=== PATIENT | male | born 1970 | race Caucasian/White ===

== ENCOUNTER 2016-10-02 16:26 | Emergency (ER) | payer SELFPAY ==
[2016-10-02 16:32] VITALS: BP 138/86
--- NOTE | 2016-10-02 16:37 | ER Document Report ---
ED Medical Screen (RME) - General Stated Complaint: POSSIBLE STD EXPOSURE Notes: Patient states he is having penile discharge for the last 2-1/2 days. Complains of burning when he voids. States he has not been notified by partner of any STD. I have greeted and performed a rapid initial assessment of this patient. A comprehensive ED assessment and evaluation of the patient, analysis of test results and completion of the medical decision making process will be conducted by additional ED providers. - Related Data Allergies/Adverse Reactions: No Known Allergies Allergy (Verified 10/02/16 16:35) Physical Exam - Vital signs Vitals: Temp Pulse Resp BP Pulse Ox 99.3 F 90 16 138/86 H 99 10/02/16 16:31 10/02/16 16:31 10/02/16 16:31 10/02/16 16:31 10/02/16 16:31 Course - Vital Signs Vital signs: Temp Pulse Resp BP Pulse Ox 99.3 F 90 16 138/86 H 99 10/02/16 16:31 10/02/16 16:31 10/02/16 16:31 10/02/16 16:31 10/02/16 16:31
[2016-10-02] MEDS ORDERED: LIDOCAINE 1% INJ-PF (10 MG/ML) 30 ML SDV INJ ONE (17:15)
[2016-10-02] MEDS ORDERED: CEFTRIAXONE INJ 500 MG VIAL IM ONE (17:15)
[2016-10-02] MEDS ORDERED: AZITHROMYCIN 1 GM SUSP PACKET PO ONE (17:16)
[2016-10-02 17:23] LABS: APPEARANCE,URINE SLIGHTLY-CLOUDY; BILIRUBIN,URINE NEGATIVE (NEGATIVE); GLUCOSE, URINE NEGATIVE (NEGATIVE); KETONES,URINE NEGATIVE (NEGATIVE); LEUKOCYTE ESTERASE,URINE MODERATE (NEGATIVE); NITRITE,URINE NEGATIVE (NEGATIVE); PROTEIN,URINE NEGATIVE (NEGATIVE); UROBILINOGEN,URINE NEGATIVE mg/dL (<2.0)
--- NOTE | 2016-10-02 18:06 | ER Document Report ---
ED General - General Chief Complaint: STD Exposure Stated Complaint: POSSIBLE STD EXPOSURE Notes: Patient is complaining of burning with urination since Wednesday. He is also had some penile discharge and drip. Had sexual relations Wednesday, and developed these symptoms the next afternoon. Think she may have had some fever last night, but did not take his temp.. No vomiting and diarrhea. No abdominal pains. TRAVEL OUTSIDE OF THE [place] IN LAST 30 DAYS: No - Related Data Allergies/Adverse Reactions: No Known Allergies Allergy (Verified 10/02/16 16:35) Past Medical History - Social History Smoking Status: Current Every Day Smoker Chew tobacco use (# tins/day): No Frequency of alcohol use: Social Drug Abuse: None Family History: Reviewed & Not Pertinent Patient has suicidal ideation: No Patient has homicidal ideation: No Surgical Hx: Negative Review of Systems - Review of Systems EENT: denies: Eye discharge Cardiovascular: denies: Chest pain Respiratory: denies: Cough, Short of breath, Wheezing Gastrointestinal: denies: Abdominal pain, Diarrhea, Vomiting, Constipation Physical Exam - Vital signs Vitals: Temp Pulse Resp BP Pulse Ox 99.3 F 90 16 138/86 H 99 10/02/16 16:31 10/02/16 16:31 10/02/16 16:31 10/02/16 16:31 10/02/16 16:31 Interpretation: Normal - Notes Notes: PHYSICAL EXAMINATION: GENERAL: Well-appearing, in no acute distress.Ambulatory. No apparent pain. HEAD: Atraumatic, normocephalic. ABDOMEN: Soft, nontender. No guarding or rebound. BACK: No tenderness throughout entire back. Genitourinary: Patient has a small amount of clear looking discharge from the tip of the urethra. Does not look purulent. No swelling of either testicle. External genitalia essentially normal appearing. SKIN: Warm, dry, no rashes. Course - Re-evaluation Re-evalutation: 10/02/16 19:23 In spite of patient's tests all come back normal. He has symptoms of at least a nonspecific urethritis. I'm going to treat him with a spectrum of antibiotics that will treat all the possible STDs of significance. He understands this approach and is agreeable to doing so. - Vital Signs Vital signs: Temp Pulse Resp BP Pulse Ox 99.3 F 90 16 138/86 H 99 10/02/16 16:31 10/02/16 16:31 10/02/16 16:31 10/02/16 16:31 10/02/16 16:31 - Laboratory Laboratory results interpreted by me: 10/02/16 10/02/16 16:55 16:55 Ur Leukocyte Esterase MODERATE H Urine Ascorbic Acid 40 H N.gonorrhoeae DNA (PCR) DETECTED H Discharge - Discharge Clinical Impression: NSU (nonspecific urethritis) Condition: Stable Disposition: HOME, SELF-CARE Additional Instructions: Urethritis You have urethritis, an infection of the urethra. The usual symptoms are pain on urination and discharge. The infection is often caused by gonorrhea or chlamydia. Treatment is antibiotics. In addition, any sexual contacts should be evaluated by a physician as soon as possible. As this infection can be transmitted sexually, refrain from sexual activity until the infection is confirmed as healed by your physician. If gonorrhea or chlamydia is found on culture, the health department must be notified. Call the doctor at once if you develop difficulty passing your urine, high fever, rash, joint swelling, or other new symptoms.current. TRICHOMONAS INFECTION: Trichomoniasis is infection of the vagina or male genital tract with Trichomonas vaginalis. It can be asymptomatic or cause urethritis, vaginitis, or occasionally cystitis, epididymitis, or prostatitis. Diagnosis is by microscopic examination of vaginal or prostatic secretions or by urethral culture. Patients and sex partners are treated with metronidazole. T. vaginalis is a flagellated, sexually transmitted protozoan that more often infects women (about 20% of women of reproductive age) than men. Infection may be asymptomatic in either sex, but asymptomatic is the rule for men. In men, protozoa may persist for long periods in the tract without causing symptoms; thus, protozoa may be transmitted unwittingly to sex partners. Trichomoniasis may account for up to 5% of nongonococcal, nonchlamydial urethritis in men in some areas. Co-infection with gonorrhea and other sexually transmitted diseases (STDs) is common. In women, symptoms range from none to copious, yellow-green, frothy vaginal discharge with soreness of the vulva and perineum, dyspareunia, and dysuria. Asymptomatic infection may become symptomatic at any time as the vulva and perineum become inflamed and edema develops in the labia. The vaginal torres and surface of the cervix may have punctate, red "strawberry" spots. Urethritis and possibly cystitis may also occur. Men are usually asymptomatic; however, sometimes urethritis results in a discharge that may be transient, frothy, or purulent or that causes dysuria and frequency, usually early in the morning. Often, urethritis is mild and causes only minimal urethral irritation and occasional moisture at the urethral meatus , under the foreskin, or both. Epididymitis and prostatitis are rare complications. Trichomoniasis is suspected in women with vaginitis, in men with urethritis , and in their sex partners. Suspicion is high if symptoms persist after patients have been evaluated and treated for other infections such as gonorrhea and chlamydial, mycoplasmal, and ureaplasmal infections. In women, diagnosis is based on clinical criteria and in-office testing. The saline wet mount is examined microscopically as soon as possible to detect trichomonads.In men, microscopy of urine is insensitive, although occasionally organisms are visible in a first-voided morning specimen or a centrifuged specimen. Cultures of urine and urethral swabs are more sensitive. As with diagnosis of any STD, patients with trichomoniasis should be tested to exclude other common STDs such as gonorrhea and chlamydial infection. Metronidazole or tinidazole 2 g po in a single dose cures up to 95% of women if sex partners are treated simultaneously. Effectiveness of single-dose regimens in men is not as clear, so treatment is typically with metronidazole or tinidazole 500 mg bid for 5 to 7 days. Sex partners should be screened and treated for trichomoniasis and other STDs. If poor adherence to follow-up is likely, treatment can be initiated in sex partners of patients with documented trichomoniasis without confirming the diagnosis in the partner. Chlamydia Chlamydia is a germ that grows inside the cells of the mucous membranes. It often infects the eyes, urethra, and fallopian tubes. It can cause chronic pain and scar tissue if untreated. Antibiotics are used to treat chlamydia. It's important to take all the medicine even if there are no symptoms. Use condoms to prevent spread of the infection. Because this infection can spread by sexual contact, it's important that your sexual partner be checked before resuming sexual relations. A positive test for chlamydia has to be reported to the health department. Call the doctor or return at once if you develop increasing fever, rash, severe pelvic pain, vaginal bleeding (other than your period), or problems with your bladder or bowels. Gonorrhea In men, this germ infects the urethra (and sometimes the throat). Men usually have drainage from the penis and pain with urination. In women, the germ infects the vagina and fallopian tubes. There may be discharge and pelvic pain. Some women have no symptoms at all. The infection can do permanent damage to the tubes and ovaries. It should be taken very seriously. Treatment is antibiotics. It's important that you receive all recommended medication. Use condoms to prevent spread of the infection. Because this infection is spread sexually, your sexual partner must be checked before resuming sexual relations. If a culture shows gonorrhea germs, it must be reported to the health department. Call the doctor or return at once if you develop increasing fever, rash, joint swelling, severe pelvic pain, vaginal bleeding (other than your period), or problems with your bladder or bowels. ANTIBIOTIC THERAPY: You have been given an antibiotic prescription. It's important that you take all the medication, unless instructed otherwise by your physician. Failure to complete the entire course can result in relapse of your condition. Common side effects of antibiotics include nausea, intestinal cramping, or diarrhea. Women may develop vaginal yeast infections, and babies can get yeast (thrush) in the mouth following the use of antibiotics. Contact your physician if you develop significant side effects from this medication. Allergy to this antibiotic can result in hives, wheezing, faintness, or itching. If symptoms of allergy occur, stop the medication and call the doctor. Rocephin You have been given an injection of an antibiotic called Rocephin ( ceftriaxone). Sometimes the injection must be combined with antibiotic pills. For some infections, such as an uncomplicated ear infection, Rocephin provides all the antibiotic that's needed. The antibiotic will be in your body for about two days. For serious infections, we usually repeat doses of Rocephin daily. Side effects are very unusual following a shot. Women may develop vaginal yeast infections, and babies can get yeast (thrush) in the mouth following the use of antibiotics. Contact your physician if you have symptoms with this medication. Allergy to this antibiotic can result in hives, wheezing, faintness, or itching. If symptoms of allergy occur, call the doctor at once. AZITHROMYCIN: Azithromycin (Zithromax) is a broad spectrum antibiotic in the same class as erythromycin. It can treat a variety of bacterial infections, but is most frequently used for respiratory infections. Azithromycin is extremely long-lasting. It accumulates in body tissues and continues to kill bacteria for many days. In order to improve absorption, Azithromycin should be taken at least one hour before or two hours after a meal. It does not have the same strong tendency to upset the stomach as erythromycin and is usually very well tolerated. Patients who have had a rash or other true allergic reactions to erythromycin should not take this medication. Call if you develop gastrointestinal distress, severe diarrhea, rash, hives, itching, or shortness of breath. METRONIDAZOLE: Metronidazole (Flagyl) has been prescribed. This medication is used to kill a type of bacteria called anaerobes, and protozoan parasites such as trichomonas and Giardia. Flagyl often causes a metallic taste in the mouth and mild nausea. Do not use alcohol in any form with Flagyl (including alcohol in medication elixirs). Flagyl interacts with alcohol to cause flushing, palpitations, headache, stomach cramps, and vomiting. Do not use Flagyl if you are taking Antabuse (disulfiram). Call the doctor at once if you develop rash, shortness of breath, itching, or lightheadedness. FOLLOW-UP CARE: If you have been referred to a physician for follow-up care, call the physician s office for an appointment as you were instructed or within the next two days. If you experience worsening or a significant change in your symptoms, notify the physician immediately or return to the Emergency Department at any time for re-evaluation. Prescriptions: Metronidazole 500 mg PO TID #20 tablet
[2016-10-02 18:59] LABS: CHLAM PCR NOT DETECTED (NOT DETECT)
== END 2016-10-02 18:40 | disposition home or self-care (01) ==
LOC: ER 16:26
DX: N34.1 Nonspecific urethritis (principal); Z20.2 Contact with and (suspected) exposure to infections with a predominantly sexual mode of transmission; F17.200 Nicotine dependence, unspecified, uncomplicated
CPT/HCPCS: 99283; 96372; 87210; 81001; 87491; 87591; J3490; Q0144; J0696

== ENCOUNTER 2017-06-18 17:46 | Emergency (ER) | payer SELFPAY ==
[2017-06-18 17:58] VITALS: BP 130/83
--- NOTE | 2017-06-18 18:38 | ER Document Report ---
HPI - HPI Pain Level: 3 Notes: Patient is a 47-year-old male with no severe past medical history presents ED complaining of a possible skin infection to his posterior left shoulder that has been there for about 2 weeks now. Patient states that the area has swollen up, popped, and had some purulent discharge associated with it twice over the last 2 weeks with the last being 4 days ago. Patient states that the swelling has gone down and it is not as painful right now, but he can still feel it there. Patient denies any tick bite or known insect bite to the area. He denies any drug allergies or IV drug use. Patient does admit to smoking. Denies any headache, fever, neck pain, URI, sore throat, chest pain, palpitations, syncope, cough, shortness of breath, wheeze, dyspnea, abdominal pain, nausea/vomiting/diarrhea, urinary retention, dysuria, hematuria, joint pain, numbness/tingling, or rash. - ROS Notes: REVIEW OF SYSTEMS: CONSTITUTIONAL : Denies fever, chills, or sweats. Denies recent illness. EENT: Denies eye, ear, throat, or mouth pain or symptoms. Denies nasal or sinus congestion or discharge. Denies throat, tongue, or mouth swelling or difficulty swallowing. CARDIOVASCULAR: Denies chest pain. Denies palpitations or racing or irregular heart beat. Denies ankle edema. RESPIRATORY: Denies cough, cold, or chest congestion. Denies shortness of breath, difficulty breathing, or wheezing. GASTROINTESTINAL: Denies abdominal pain or distention. Denies nausea, vomiting , or diarrhea. Denies blood in vomitus, stools, or per rectum. Denies black, tarry stools. Denies constipation. GENITOURINARY: Denies difficulty urinating, painful urination, burning, frequency, blood in urine, or discharge. MUSCULOSKELETAL: Denies back or neck pain or stiffness. Denies joint pain or swelling. SKIN: see hpi NEUROLOGICAL: Denies dizziness or lightheadedness. Denies headache. Denies weakness or paralysis or loss of use of either side. Denies problems with gait or speech. Denies sensory loss, numbness, or tingling. Denies seizures. PSYCHIATRIC: Denies anxiety or stress. Denies depression, suicidal ideation, or homicidal ideation. ALL OTHER SYSTEMS REVIEWED AND NEGATIVE. Dictation was performed using [employer] voice recognition software - MUSCULOSKELETAL Musculoskeletal: REPORTS: Extremity pain Past Medical History - Social History Smoking Status: Current Every Day Smoker Chew tobacco use (# tins/day): No Frequency of alcohol use: None Drug Abuse: None Family History: Reviewed & Not Pertinent Patient has suicidal ideation: No Patient has homicidal ideation: No Renal/ Medical History: Denies: Hx Peritoneal Dialysis Vertical Provider Document - CONSTITUTIONAL Agree With Documented VS: Yes Notes: PHYSICAL EXAMINATION: GENERAL: Well-appearing, well-nourished and in no acute distress. LUNGS: Breath sounds clear to auscultation bilaterally and equal. No wheezes rales or rhonchi. HEART: Regular rate and rhythm without murmurs, rubs, gallops. Musculoskeletal: Left UE: FROM to passive/active. Strength 5+/5. N/V intact. Extremities: No cyanosis, clubbing, or edema b/l. Peripheral pulses 2+. Capillary refill less than 3 seconds. NEUROLOGICAL: Normal speech, normal gait. Normal sensory, motor exams PSYCH: Normal mood, normal affect. SKIN: small 0.3cm mildly erythemic area w/o abscess noted to the skin. + mild tenderness with minimal induration. No discharge or streaks. No necrosis. - INFECTION CONTROL TRAVEL OUTSIDE OF THE [place] IN LAST 30 DAYS: No - RESPIRATORY O2 Sat by Pulse Oximetry: 97 Course - Re-evaluation Re-evalutation: 06/18/17 18:36 Patient is an afebrile, well-hydrated, 47-year-old male who presents the ED with a very small cellulitis to the posterior left shoulder, that could have previously had an abscess associated with it based on history. Vitals are stable. PE is otherwise unremarkable. Reviewed with patient that skin cancer can remain in this differential and he has to keep an eye on it and see if it does not improve after antibiotics. If that is so, then he will need a biopsy performed. Low suspicion for any other systemic emergent condition at this time otherwise. Monitor symptoms closely and seek medical attention with any acute changes. I will send him home with a prescription for doxycycline to take as directed. Recheck with your PCM in 3-5 days. Consider consult with dermatology. Return to the ED with any worsening/concerning symptoms otherwise as reviewed in discharge. Patient is in agreement. - Vital Signs Vital signs: Temp Pulse Resp BP Pulse Ox 98.9 F 82 18 130/83 H 97 06/18/17 17:57 06/18/17 17:57 06/18/17 17:57 06/18/17 17:57 06/18/17 17:57 Discharge - Discharge Clinical Impression: Cellulitis Qualifiers: Site of cellulitis: extremity Site of cellulitis of extremity: upper extremity Laterality: left Qualified Code(s): L03.114 - Cellulitis of left upper limb Condition: Stable Disposition: HOME, SELF-CARE Instructions: Cellulitis ([facility]), Doxycycline ([facility]) Additional Instructions: Keep the skin clean Wash with soap and water Tylenol/ibuprofen if needed Triple antibiotic ointment daily Take medication as directed Monitor for any worsening symptoms, you may need a skin biopsy if unresolving s/ p medication. Recheck with your PCM in 3-5 days Consider consult with Dermatology for ongoing/worsening symptoms Return to the ED with any worsening symptoms and/or development of fever, headache, chest pain, palpitations, syncope, shortness of breath, trouble breathing, abdominal pain, n/v/d, abscess, purulent discharge, red streaks, worsening swelling, or other worsening symptoms that are concerning to you. Prescriptions: Doxycycline Hyclate 100 mg PO BID #20 capsule Forms: Elevated Blood Pressure, Smoking Cessation Education Referrals: ORVILLE MIDDLETON DO [ACTIVE STAFF] - Follow up as needed
== END 2017-06-18 18:48 | disposition home or self-care (01) ==
LOC: ER 17:46
DX: L03.114 Cellulitis of left upper limb (principal); M25.511 Pain in right shoulder; F17.200 Nicotine dependence, unspecified, uncomplicated
CPT/HCPCS: 99283